=== PATIENT | male | born 1945 | race Caucasian/White ===

== ENCOUNTER 2017-03-03 08:44 | Outpatient (CLI) | payer MEDICARE, OTHER ==
[2017-03-03 09:23] LABS: eGFR (African) > 60; eGFR (Non-African) > 60
== END 2017-03-03 08:45 ==
LOC: LAB 08:44
PROVIDERS: ATTEND Internal Medicine
DX: E78.4 Other hyperlipidemia (principal)
CPT/HCPCS: 36415; 80053; 80061